=== PATIENT | female | born 1985 | race Caucasian/White ===

== ENCOUNTER 2016-11-06 14:31 | Emergency (ER) | payer BC, MEDICARE ==
[~2016-11-06] VITALS: Ht 152.4 cm; Wt 72.7 kg
[~2016-11-06 14:31] MED LIST: AMOXICILLIN250 M2 PO; ATIVAN 2MG2 MG PO; CHERATUSSIN AC240 ML PO; KLONOPIN0.5 M1 PO; LAMICTAL150 MG PO; LEVSIN/SL0.125 MG SL; MEDROL 4MG DOSPA4 MG PO; METFORMIN500 MG PO; NORCO 325 MG-51 TAB PO; NORFLEX100 MG PO; PROVENTIL0.09 MG/A1 IH; RT ALBUTEROL CC18 GM IH; TAMIFLU75 MG PO; TESSALON PERLE200 MG PO; TOPAMAX50 M1 PO; TRAZODONE100 MG PO; TUSS PO; XOPENEX 0.0.63 MG/3 IH; ZANAFLEX2 M2 PO; ZITHROMAX Z PA250 MG PO
[2016-11-06] MEDS ORDERED: PHENTERMINE HYD30 MG PO (14:38)
[2016-11-06] MEDS ORDERED: ONDANSETRON HYDR4 M1 PO (17:18)
[2016-11-06 17:32] VITALS: BP 135/84
== END 2016-11-06 17:23 | disposition home or self-care (01) ==
LOC: ED 14:31
DX: R11.2 Nausea with vomiting, unspecified (principal); L50.3 Dermatographic urticaria; Z87.440 Personal history of urinary (tract) infections

== ENCOUNTER 2018-04-15 07:09 | Emergency (ER) | payer BC, MEDICARE ==
[~2018-04-15] VITALS: Ht 152.4 cm; Wt 77.3 kg
[~2018-04-15 07:09] MED LIST changes: +ONDANSETRON HYDR4 M1 PO; +PHENTERMINE HYD30 MG PO
[2018-04-15 07:45] LABS: EOS # 0.1 (0.04-0.40); EOS % 1.7 % (1.0-5.0); HEMATOCRIT 40.3 % (37.0-47.0); HEMOGLOBIN 13.4 g/dL (12.5-16.0); LYMPH# 1.8 (1.50-4.00); MEAN CELL VOLUME 89 fl (78-100); MEAN CORPUSCULAR HEMOGLOBIN 30 pg (27-31); MEAN CORPUSCULAR HGB CONC 33 g/dL (33-37); MONO # 0.5 (0.20-0.80); NEU # 2.7 (1.40-6.50); PLATELET COUNT 240 K/mm3 (130-400); RED BLOOD COUNT 4.53 M/mm3 (4.10-5.30); WHITE BLOOD COUNT 5.2 K/mm3 (4.8-10.8)
[2018-04-15 07:57] LABS: URINE APPEARANCE CLEAR; URINE COLOR YELLOW
[2018-04-15 07:58] LABS: PH-URINE 7.5 (5.0 - 8.0); URINE BILIRUBIN NEGATIVE (NEGATIVE); URINE BLOOD NEGATIVE (NEGATIVE); URINE GLUCOSE NEGATIVE (NEGATIVE); URINE KETONE NEGATIVE (NEGATIVE); URINE LEUKOCYTE ESTERASE NEGATIVE (NEGATIVE); URINE NITRATE NEGATIVE (NEGATIVE); URINE PROTEIN(semi-quant) NEGATIVE (NEGATIVE); URINE UROBILINOGEN NORMAL (NORMAL); URINE WBC 0-1 /hpf (0-3)
[2018-04-15 07:58] LABS: ALBUMIN 4.1 g/dL (3.5-5.0); CALCIUM 8.7 mg/dL (8.4-10.2); POTASSIUM 3.7 mmol/L (3.6-5.0); TOTAL BILIRUBIN 0.8 mg/dL (0.2-1.3); TOTAL PROTEIN 6.8 g/dL (6.3-8.2)
[2018-04-15 08:52] VITALS: BP 115/66
== END 2018-04-15 08:47 | disposition home or self-care (01) ==
LOC: ED 07:09
PROVIDERS: Family Medicine
DX: R53.81 Other malaise (principal); G43.909 Migraine, unspecified, not intractable, without status migrainosus